=== PATIENT | female | born 1965 | race Caucasian/White ===

== ENCOUNTER 2018-01-15 22:54 | Emergency (ER) | payer MEDICAID ==
[~2018-01-15] VITALS: Ht 152.4 cm; Wt 92.5 kg
[2018-01-15 23:02] VITALS: BP_SYST 154
[2018-01-15 23:15] VITALS: BP_SYST 150
== END 2018-01-15 23:15 | disposition home or self-care (01) ==
LOC: SED 22:54
DX: H66.93 Otitis media, unspecified, bilateral (principal); Z88.0 Allergy status to penicillin
CPT/HCPCS: 99283